=== PATIENT | female | born 2000 | race Caucasian/White ===

== ENCOUNTER 2022-07-11 15:25 | Emergency (ER) | payer BC, SELFPAY ==
--- NOTE | ~2022-07-11 | CT_ITS ---
EXAMINATION: CT ABDOMEN AND PELVIS WITH CONTRAST CLINICAL INFORMATION: Lower abdominal pain COMPARISON: Ultrasound earlier today - Probable right ovarian hemorrhagic cyst or corpus luteum. Left ovarian heterogeneous mass which appears partially cystic. This too may represent possible hemorrhagic cyst possibly of teratoma also in the differential. TECHNIQUE: Multidetector volumetric images were obtained from the superior aspect of the liver through the pubic symphysis following administration 85 mL of Omnipaque 350 intravenous contrast. Sagittal and coronal reformatted images were obtained on the technologist's workstation. Oral contrast: No This CT examination was performed using dose optimization techniques as appropriate, variously including the following: *Automated exposure control *Adjustment of mA and/or kV according to patient size (this includes techniques or standardized protocols for targeted exams where dose is matched to indication/reason for exam; i.e. extremities or head) *Use of iterative reconstruction technique DLP: 289 mGy-cm FINDINGS: LUNG BASES: A polygonal shaped 5 mm nodule is present abutting the pleura in the left lower lobe (4:7) The visualized lung bases are otherwise unremarkable. LIVER, GALLBLADDER, AND BILIARY TREE: The liver is normal in size, shape, and attenuation. No focal hepatic lesion. There is some minimal prominence of intrahepatic bile ducts but no significant biliary ductal dilatation is present. The gallbladder is unremarkable with no evidence of radiopaque gallstones, gallbladder wall thickening, or obvious pericholecystic inflammatory changes. PANCREAS: Unremarkable. SPLEEN: A 3 cm splenic cyst is present. A splenule is present in the left midabdomen just below the spleen ADRENAL GLANDS: Unremarkable. KIDNEYS AND URETERS: The kidneys are normal in size, shape, and attenuation. No hydronephrosis, hydroureter, or calculi seen. No perinephric stranding. BLADDER: Unremarkable. GASTROINTESTINAL TRACT: The small and large bowel are unremarkable. The appendix is not identified with certainty but there is no evidence to suggest appendicitis. ABDOMINAL WALL: No significant hernia is appreciated. Subcutaneous air is present in the right buttock, presumably from a subcutaneous injection. Please correlate with history. LYMPH NODES: Normal. VASCULAR: Unremarkable. PELVIC VISCERA: An IUD is present in the retroverted uterus. Small amount of free pelvic fluid is seen. There is an enhancing wall of what appears to be a collapsed left ovarian cyst. No calcifications are seen in the left ovary to suggest a dermoid/teratoma. A pathologic worrisome adnexal mass is not seen. OSSEOUS STRUCTURES: Unremarkable. CT/CT abdomen pelvis w IV con IMPRESSION: Probable ruptured cyst in left ovary with free intraperitoneal fluid. A worrisome finding is not seen. Incidental note made of 5 mm polygonal subpleural left lower lobe nodule I suspect possibly benign lymphoid tissue. Fleischner guidelines do not apply to patients 5 years of age. Fleischner guidelines were followed, and as recommended do not apply to patients of this age.
--- NOTE | ~2022-07-11 | US_ITS ---
EXAMINATION: US PELVIS TRANSVAGINAL CLINICAL INFORMATION: Severe sudden pelvic pain COMPARISON: None. TECHNIQUE: Transcutaneous and transvaginal pelvic ultrasound. Transvaginal scanning was performed after voiding to better evaluate the endometrium and adnexa. FINDINGS: The uterus measures 7.2 x 3.2 x 4.1 cm. The uterus is anteverted. No suspicious abnormalities region of the cervix. The uterine contour is smooth. The endometrium measures 0.[address] No focal abnormalities within the myometrium. The right ovary measures approximately 4.1 x 2.5 x 1.9 cm. The calculated right ovarian volume is approximately 10.2 mL. There is normal right adnexal blood flow present. There is a heterogeneous and partially cystic 2.1 x 1.4 x 1.7 cm ovarian lesion which may represent the remnants of a ruptured cyst versus a corpus luteum. The left ovary measures 4.4 x 2.5 x 2.5 cm. The calculated left ovarian volume is approximately 14.4 mL. There is normal arterial and venous adnexal blood flow. There is a complex left ovarian structure which appears to have a cystic component as well as hyperechoic regions. No echogenic calcific region is noted within this. There is a small amount of vascular flow present within it with some peripheral vascularity. There is a small amount of free pelvic fluid seen. US/US pelvic and transvaginal IMPRESSION: IUD appears in good position. Probable right ovarian hemorrhagic cyst or corpus luteum. Left ovarian heterogeneous mass which appears partially cystic. This too may represent possible hemorrhagic cyst possibly of teratoma also in the differential.
--- NOTE | ~2022-07-11 | US_ITS ---
EXAMINATION: US PELVIS TRANSVAGINAL CLINICAL INFORMATION: Severe sudden pelvic pain COMPARISON: None. TECHNIQUE: Transcutaneous and transvaginal pelvic ultrasound. Transvaginal scanning was performed after voiding to better evaluate the endometrium and adnexa. FINDINGS: The uterus measures 7.2 x 3.2 x 4.1 cm. The uterus is anteverted. No suspicious abnormalities region of the cervix. The uterine contour is smooth. The endometrium measures 0.[address] No focal abnormalities within the myometrium. The right ovary measures approximately 4.1 x 2.5 x 1.9 cm. The calculated right ovarian volume is approximately 10.2 mL. There is normal right adnexal blood flow present. There is a heterogeneous and partially cystic 2.1 x 1.4 x 1.7 cm ovarian lesion which may represent the remnants of a ruptured cyst versus a corpus luteum. The left ovary measures 4.4 x 2.5 x 2.5 cm. The calculated left ovarian volume is approximately 14.4 mL. There is normal arterial and venous adnexal blood flow. There is a complex left ovarian structure which appears to have a cystic component as well as hyperechoic regions. No echogenic calcific region is noted within this. There is a small amount of vascular flow present within it with some peripheral vascularity. There is a small amount of free pelvic fluid seen. US/US pelvic ovarian doppler IMPRESSION: IUD appears in good position. Probable right ovarian hemorrhagic cyst or corpus luteum. Left ovarian heterogeneous mass which appears partially cystic. This too may represent possible hemorrhagic cyst possibly of teratoma also in the differential.
[2022-07-11 16:32] VITALS: BP 101/72; PULSE 85; RESP 18; TEMP 36.9; O2SAT 97; BMI 19.2
[2022-07-11 16:48] LABS: MANUAL DIFF FLAG NO
[2022-07-11 16:50] LABS: Basophils Percent Auto 0.5 % (0-2); Eosinophils Percent Auto 0.5 % (0-4); Hematocrit 37.7 % (37.0-47.0); Imm Gran Abs Auto 0.01 X10*3/uL (0.00-0.03); Imm Gran Pct Auto 0.2 % (0.0-0.4); Lymphocytes Absolute Auto 2.1 X10*3/uL (1.2-4.9); Lymphocytes Percent Auto 34.8 % (20-40); Mean Corpuscular HGB Conc 34.5 g/dl (31.0-35.0); Mean Corpuscular Hemoglobin 30.7 pg (27.0-33.0); Mean Corpuscular Volume 89.1 fL (80.0-98.0); Mean Platelet Volume 10.7 fL (9.4-12.3); Monocytes Absolute Auto 0.4 X10*3/uL (0.1-1.2); Monocytes Percent Auto 7.4 % (2-11); Neutrophils Absolute Auto 3.4 x10*3/uL (2.0-8.3); Neutrophils Percent Auto 56.6 % (45-73); Platelet Count 227 X10*3/uL (160-400); Red Blood Count 4.23 X10*6/uL (4.20-5.50); Red Cell Distribution Width 12.5 % (11.0-16.0); White Blood Count 5.9 X10*3/uL (4.8-10.8)
--- NOTE | 2022-07-11 17:23 | ED_ITS ---
HPI - General Chief complaint: Vaginal Bleeding Stated complaint: severe pelvis pain Time Seen by Provider: 07/11/22 15:30 Source: patient Mode of arrival: ambulatory Limitations: no limitations History of Present Illness HPI Narrative: This is a 22-year-old female presenting to the emergency department with complaints of lower abdominal pain. The patient reports that she had the sudden onset of severe abdominal pain this morning at around 9:30 AM. She notes a severe, stabbing pain in her lower abdomen, right side of her back, and in her anus. She also reports that she had a random episode of vomiting yesterday afternoon and she questions if this was related. She tells me that she has been sexually active recently but denies any concerns for STD or , she has an IUD in place. She has dealt with ovarian cysts in the past and reports that this pain is similar. She was last seen by her OBGYN for this issue in March 2022, but reports that she has been unable to see them because she is currently at school at [employer] and they are located far away. She also reports having vaginal discharge that is brownish appearing and has been spotting today, she has not saturated any pads today. LMP 12/2021 however due to IUD patient with irregular cycles. She denies any chills, headaches, dizziness, upper abdominal pain, changes in bowel habits, dysuria, or hematuria. Related Data Previous Rx's Medication Instructions Recorded doxycycline hyclate 100 mg capsule 100 mg PO BID 14 days #28 caps 07/11/22 metronidazole 500 mg tablet 500 mg PO BID 14 days #28 tabs 07/11/22 morphine 15 mg immediate release 15 mg PO Q8H PRN pain #6 tabs 07/11/22 tablet ondansetron 4 mg disintegrating 4 mg PO Q6H PRN nausea and 07/11/22 tablet vomiting #14 tabs Allergies Allergy/AdvReac Type Severity Reaction Status Date / Time No Known Allergies Allergy Verified 07/11/22 16:30 Review of Systems Review of Systems: Constitutional : + Fever, No Chills ENT/Mouth : No sore throat, No Rhinorrhea Eyes: No Eye Pain, No Redness Cardiovascular : No Chest Pain, No SOB Respiratory : No Cough, No Sputum, No Wheezing Gastrointestinal : positive Nausea, + Vomiting, No Diarrhea, positive abdominal pain, Genitourinary : positive irregular bleeding, No Dysuria, No Urinary Frequency, positive pelvic pain, + vaginal discharge Musculoskeletal : No Myalgias Skin : No rash All other systems reviewed and are negative Yes all other systems are reviewed and are negative [facility] Past Medical History Attestation statement: The following information was validated with the patient. Source: old records reviewed and nursing notes reviewed Social History Social History Alcohol intake: never Patient Tobacco Use Status: Current everyday Tobacco user Use of substances other than those prescribed or required for medical reasons: No Advance Directives: No Advance Directives Information Provided: No Patient : No Physical Exam Vital Signs: Vital Signs: Last Vital Signs Temp 98.6 F 07/11/22 17:30 Pulse 80 07/11/22 17:30 Resp 16 07/11/22 17:30 BP 118/76 07/11/22 17:30 Pulse Ox 99 07/11/22 17:30 O2 Del Method 07/11/22 17:30 BMI result Body Mass Index 19.2 vss Appearance: Alert.? Oriented X3.? No acute distress.? Head: Normocephalic, atraumatic, no step-offs or deformities Eyes: Pupils equal, round and reactive to light.?? Neck: Normal inspection.? Neck supple.? CVS: Normal heart rate and rhythm.? Pulses normal.? Respiratory: No respiratory distress.? Breath sounds normal.? Abdomen: Soft. Non-distended. Positive bowel sounds. Lower abdominal tenderness to palpation. No upper abdominal tenderness. Negative Winston's sign, Mcburney's point tenderness, Rosving sign, or rebound tenderness. Skin: Skin warm and dry.? Normal skin color.? Normal skin turgor.? Extremities: No lower extremity edema.? No calf ttp. 5/5 strength to bilateral upper and lower extremities. Sensitive exam: normal external exam, vaginal canal w/ d/c that is a martita color with a hint of green appears chunky, cervix normal appearing w/ closed os. No lessions or rashes noted. Unable to palpate any masses. B/l adnexal tenderness w/ L>R. Back: Mild right paraspinal tenderness to palpation. No CVA tenderness. No midline tenderness throughout. Neuro: Oriented X 3.? No motor deficit.? No sensory deficit. Course Reevaluation(s) Reevaluation #1: CBC within normal limits. ultrasound of pelvis and transvaginal with Doppler showing a normal appearance for IUD, probable right ovarian hemorrhagic cyst or corpus luteal cyst. Left ovarian heterogeneous mass which appears partially cystic which could represent hemorrhagic cyst versus teratoma. Patient's pain is likely secondary to ruptured ovarian cyst based off history, physical, ultrasound. There is no signs of torsion on exam. Time: 17:27 Reevaluation #2: Spoke to Dr. Petersen who tells me this could be a complex cyst and high suspicion for PID recommends tx with doxy and metronidazole 14 days. Due to complexity of cyst recommends [facility] OBGYN f/u, will provider her with information. Patient was given ceftriaxone at her school's clinic, will try to figure out what dose she was given to ensure she does not need an additional dose. Will also give patient doxycycline and metronidazole at this time. Based patient's history and physical examination will also obtain a CT of the abdomen and pelvis to rule out any other etiologies that could be causing this pain. Time: 18:22 Reevaluation #3: CT scan results similar to ultrasound results, incidental lung nodule noted. Patient advised to return with new or worsening symptoms. Unable to get a hold of [facility] to discuss dose of ceftriaxone given, tried multiple times no answer patient doestn know the dose. Discussed this with Dr. Petersen who tells me that its ok to give another 250 mg incase patient didnt get the full dose of 500 mg discussed this with patient she is agreeable. Patient now with [place] teenafran will be given. Still complaining of pain Time: 19:56 Additional Reevaluation(s): Upon reevaluation patient feeling better. Tollerating PO. Pain improved from when she got here looks more comfortable. Patient will be dc home with prompt obgyn follow up and follow up with pcp. MDM - OB/Uterine Contractions MDM Narrative Medical decision making narrative: 1719 22 year old female presenting with lower abdominal pain, 1 episode of nausea and vomiting, vaginal spotting, and vaginal discharge. Hx of ovarian cysts. IUD in place currently, LMP 12/2021 PE remarkable for lower abdominal tenderness bilaterally, right paraspinal tenderness to palpation. history and physical examination concerning for possible ovarian cyst, torsion, PID. Plan to obtain basic labs, HCG, pelvic ultrasound, Medical Records Attestation: I reviewed the patient's medical records. Lab Data Attestation: I reviewed the patient's lab results. Result diagrams: 07/11/22 16:43 07/11/22 17:39 Labs: Lab Results 07/11/22 07/11/22 07/11/22 Range/Units 16:43 17:39 18:37 WBC 5.9 (4.8-10.8) X10*3/uL RBC 4.23 (4.20-5.50) X10*6/uL Hgb 13.0 (12.0-16.0) g/dl Hct 37.7 (37.0-47.0) % MCV 89.1 (80.0-98.0) fL MCH 30.7 (27.0-33.0) pg MCHC 34.5 (31.0-35.0) g/dl RDW 12.5 (11.0-16.0) % Plt Count 227 (160-400) X10*3/uL MPV 10.7 (9.4-12.3) fL Immature Gran % (Auto) 0.2 (0.0-0.4) % Neut % (Auto) 56.6 (45-73) % Lymph % (Auto) 34.8 (20-40) % [place] % (Auto) 7.4 (2-11) % Eos % (Auto) 0.5 (0-4) % Baso % (Auto) 0.5 (0-2) % Lymph # (Auto) 2.1 (1.2-4.9) X10*3/uL [place] # (Auto) 0.4 (0.1-1.2) X10*3/uL Eos # (Auto) 0.0 (0.0-0.4) X10*3/uL Baso # (Auto) 0.0 (0.0-0.2) X10*3/uL Abs Immat Gran (auto) 0.01 (0.00-0.03) X10*3/uL Absolute Neuts (auto) 3.4 (2.0-8.3) x10*3/uL Absolute Nucleated RBC 0.000 (0.0-0.012) X10*3/uL Nucleated RBC % (auto) 0.0 (0.0-0.2) /100WBC Sodium 139 (135-145) mmol/L Potassium 3.7 (3.3-5.1) mmol/L Chloride 105 (96-108) mmol/L Carbon Dioxide 23 (22-29) mmol/L Anion Gap 15 (12-20) BUN 10 (9-16) mg/dL Creatinine 0.68 (0.5-1.4) mg/dL Estim Creat Clear Calc 98.3 Estimated GFR > 60 Random Glucose 88 (60-115) mg/dL Calcium 9.5 (8.4-10.2) mg/dL Total Bilirubin 1.0 (0.0-1.0) mg/dL AST 15 (5-31) U/L ALT 10 (0-31) U/L Alkaline Phosphatase 45 (39-117) U/L Total Protein 7.2 (6.5-8.0) g/dL Albumin 4.4 (3.5-5.0) g/dL Beta HCG, Quant < 2 mIU/mL Urine Color Yellow Urine Appearance Clear Urine pH 6.0 (5.0-9.0) Ur Specific [place] >= 1.030 H (1.005-1.025) Urine Protein Negative (Neg-Trace) mg/dL Urine Glucose (UA) Negative (Negative) mg/dL Urine Ketones 15 (Negative) mg/dL Urine Blood Negative (Negative) Urine Nitrite Negative (Negative) Ur Leukocyte Esterase Negative (Negative) Critical Care Time Critical Care Time Critical Care Time: Yes Total Critical Care Time: 35 Attestation: I attest to this time spent taking care of the patient, obtaining history, physical, reviewing labs, imaging, speaking to my attending, speaking to specialist. Discharge Plan Discharge Clinical Impression: Vaginal bleeding, Pelvic pain, Ovarian cyst, Acute pelvic inflammatory disease (PID) Patient Disposition: Home, Self-Care Instructions: Ovarian Cyst (ED), Pelvic Pain (ED), Ovarian Cyst Removal (DC) Additional Instructions: Take your medications as prescribed. If you were prescribed antibiotics today, it is important that you take your medication to their entirety, do not skip any doses, do not finish them early. Follow-up with your primary care provider this week. Please follow-up with your OBGYN, if he do not have one I have attached one that works here at [facility] and one at [facility] as you have a complex cyst and will likely benefit from seeing a provider out of [facility]. Return to the emergency department with new or worsening symptoms. Such as fevers, chills, chest pain, shortness of breath, nausea, vomiting, dizziness, headache, vision changes, lethargy, bleeding through more than 2 pads per hour, worsening pain Apply heating pack to affected area. In case of emergency call 911 For severe pain you can take morphine as prescribed however, if you do take morphine please do not operate machinery or drive while taking it. Please only take this medication your self do not share with anyone. For [id number] pain you can take ibuprofen every 6 hours, Tylenol every 4 as needed for pain or discomfort. CT/CT abdomen pelvis w IV con IMPRESSION: Probable ruptured cyst in left ovary with free intraperitoneal fluid. A worrisome finding is not seen. ? Incidental note made of 5 mm polygonal subpleural left lower lobe nodule I suspect possibly benign lymphoid tissue. Fleischner guidelines do not apply to patients 5 years of age. ? Fleischner guidelines were followed, and as recommended do not apply to patients of this age. US/US pelvic ovarian doppler IMPRESSION: IUD appears in good position. ? Probable right ovarian hemorrhagic cyst or corpus luteum. ? Left ovarian heterogeneous mass which appears partially cystic. This too may represent possible hemorrhagic cyst possibly of teratoma also in the differential. ? Prescriptions: New doxycycline hyclate 100 mg capsule 100 mg PO BID 14 Days Qty: 28 0RF metronidazole 500 mg tablet 500 mg PO BID 14 Days Qty: 28 0RF morphine 15 mg tablet 15 mg PO Q8H PRN (Reason: pain) Qty: 6 0RF Rx Instructions: Partial Fill upon patient request. ondansetron 4 mg tablet,disintegrating 4 mg PO Q6H PRN (Reason: nausea and vomiting) Qty: 14 0RF Referrals: Physician,Rick Rodriguez [Physician] - 2 days Salty Petersen MD [Physician] - 2 days [facility] [Provider Group] - 1 day Stand Alone Forms: Work/School Release
[2022-07-11 17:30] VITALS: BP 118/76; PULSE 80; RESP 16; TEMP 37; O2SAT 99
[2022-07-11] MEDS: Morphine Sulfate 2 MG/ML CARTRIDGE IVPUSH ×2 (17:46→20:09)
[2022-07-11 18:00] LABS: Alanine Aminotransferase 10 U/L (0-31); Albumin Level 4.4 g/dL (3.5-5.0); Alkaline Phosphatase 45 U/L (39-117); Anion Gap 15 (12-20); Aspartate Amino Transferase 15 U/L (5-31); Blood Urea Nitrogen 10 mg/dL (9-16); Calcium 9.5 mg/dL (8.4-10.2); Carbon Dioxide 23 mmol/L (22-29); Chloride 105 mmol/L (96-108); Creatinine Clr Calc Pharmacy 98.3; Estimated Glomerular Filt Rate > 60; Glucose Random 88 mg/dL (60-115); Potassium 3.7 mmol/L (3.3-5.1); Sodium 139 mmol/L (135-145); Total Protein 7.2 g/dL (6.5-8.0)
[2022-07-11 18:05] LABS: HCG Quantitative < 2 mIU/mL
--- NOTE | 2022-07-11 18:24 | P.CONOB_ITS ---
EMERGENCY ROOM CLINICIAN - CN: HPI Data of Consult Consult date: 07/11/22 Primary Care Provider: Unknown Physician Consult Narrative Narrative: I was consulted on Adrienne Davis who is a 22 year old female who presented to the emergency room with complaining of lower abdominal pain , it was sudden in onset at around 9:30 AM. She reports a severe, stabbing pain in her lower abdomen, right side of her back, and in her anus associated with 1 episode of vomiting. she has an IUD in place. The patient is a [employer] to tent [facility] and was given ceftriaxone IM and was discharged home to come the emergency room in case of worsening/persistence of her pain. In the emergency room CBC, chemistry within normal. HCG less than 2. GC/chlamydia, BV panel and Trichomonas collected. Pelvic ultrasound done cc:: CC: OB [facility] Social History Social History Alcohol intake: never Patient Tobacco Use Status: Current everyday Tobacco user Use of substances other than those prescribed or required for medical reasons: No Advance Directives: No Advance Directives Information Provided: No Patient : No Meds Allergies Allergy/AdvReac Type Severity Reaction Status Date / Time No Known Allergies Allergy Verified 07/11/22 16:30 EMERGENCY ROOM CLINICIAN Physical Exam Vitals Vital signs: Temp Pulse Resp BP Pulse Ox O2 Del Method 98.6 F 80 16 118/76 99 07/11/22 17:30 07/11/22 17:30 07/11/22 17:30 07/11/22 17:30 07/11/22 17:30 07/11/22 17:30 BMI result Body Mass Index 19.2 Additional Comments: Physical exam reported by DAMIAN Hart Abdomen: Soft. Non-distended. Positive bowel sounds. Lower abdominal tenderness to palpation. No upper abdominal tenderness no rebound tenderness. Pelvic exam: Bilateral adnexal tenderness left more than the right, greenish vaginal discharge no lesions no other findings EMERGENCY ROOM CLINICIAN - Results Labs CBC & Chem 7: 07/11/22 16:43 07/11/22 17:39 Labs: Short CBC 07/11/22 Range/Units 16:43 WBC 5.9 (4.8-10.8) X10*3/uL Hgb 13.0 (12.0-16.0) g/dl Hct 37.7 (37.0-47.0) % Plt Count 227 (160-400) X10*3/uL BMP 07/11/22 17:39 Sodium 139 Potassium 3.7 Chloride 105 Carbon Dioxide 23 BUN 10 Creatinine 0.68 Calcium 9.5 Liver Function 07/11/22 Range/Units 17:39 Total Bilirubin 1.0 (0.0-1.0) mg/dL AST 15 (5-31) U/L ALT 10 (0-31) U/L Alkaline Phosphatase 45 (39-117) U/L Albumin 4.4 (3.5-5.0) g/dL Imaging US - abdomen: Radiologist's impression: ITS Impressions Doppler Study Ultrasound 07/11/22 16:05 IMPRESSION: IUD appears in good position. Probable right ovarian hemorrhagic cyst or corpus luteum. Left ovarian heterogeneous mass which appears partially cystic. This too may represent possible hemorrhagic cyst possibly of teratoma also in the differential. Pelvic/Transvag US 07/11/22 16:05 IMPRESSION: IUD appears in good position. Probable right ovarian hemorrhagic cyst or corpus luteum. Left ovarian heterogeneous mass which appears partially cystic. This too may represent possible hemorrhagic cyst possibly of teratoma also in the differential. Assessment and Plan (1) Pelvic pain: Status: Inactive Discussed with DAMIAN Velasco differential diagnosis of pelvic pain including but not limited to ovarian cyst, PID and others, Recommended the following: Treat for PID with CDC protocol outpatient treatment with doxycycline 100 mg p.o. b.i.d. and Flagyl 500 mg p.o. b.i.d. for 14 days in addition to ceftriaxone of 500 mg IM x1 , and to verify the adequate dose was given at [facility], close of outpatient follow-up with STD screen including hep B surface antigen, hepatitis-C antibody, HIV and syphilis screen. Instructions to be given to the patient to come back to the emergency room in case of fever at 100.4 or above, nausea and vomiting, worsening or persistence of the pain. (2) Complex cyst of both ovaries: Status: Acute Since bilateral Doppler studies are normal by ultrasound, recommend close outpatient follow-up for the complex ovarian cyst/hemorrhagic cysts /cystic mass. Differential diagnosis includes but not limited to pre malignant or malignant lesions. I spent a total of 20 minutes reviewing the chart, communicating to the ER provider and documenting in the medical record
[2022-07-11] MEDS: metroNIDAZOLE 500 MG TABLET PO (18:35)
[2022-07-11 18:51] LABS: Appearance Urine Clear; Color Urine Yellow; Glucose Urine UA Negative (Negative); Leukocyte Esterase Urine Negative (Negative); Nitrite Urine Negative (Negative); Specific Gravity - Urine >= 1.030 (1.005-1.025); Urine Blood Negative (Negative); Urine Ketones 15 mg/dL (Negative); Urine Protein Negative (Neg-Trace)
[2022-07-11] MEDS: iohexoL 350 MG/ML 100 ML INFUS..BTL IV (19:18)
[2022-07-11] MEDS: ondansetron HCL 4 MG/2 ML VIAL IVPUSH (20:09)
[2022-07-11] MEDS: cefTRIAXone sodium 250 MG, Lidocaine HCl 1 % MPF 0.9 ML IM (20:10)
[2022-07-11 22:00] VITALS: BP 109/65; BP 111/65; PULSE 69; PULSE 75; RESP 16; RESP 18; TEMP 36.6; TEMP 36.9; O2SAT 98
[2022-07-11] MEDS: HYDROmorphone HCl 0.5 MG/0.5 ML SYRINGE IVPUSH (22:07)
[2022-07-11] MEDS: 0.9 % Sodium Chloride 1,000 ML 999 ML IV (22:09)
[2022-07-12 01:29] VITALS: BP 114/62; PULSE 73; RESP 14; TEMP 36.8; O2SAT 97
[2022-07-12 02:29] LABS: CT PCR NOT DETECTED (Not Detect.); NG PCR NOT DETECTED (Not Detect.)
== END 2022-07-12 01:30 | disposition home or self-care (01) ==
PROVIDERS: Physician Assistant; Emergency Provider Emergency Medicine
DX: N83.292 Other ovarian cyst, left side (principal); N83.291 Other ovarian cyst, right side; N93.9 Abnormal uterine and vaginal bleeding, unspecified; N73.9 Female pelvic inflammatory disease, unspecified; R10.2 Pelvic and perineal pain; F17.200 Nicotine dependence, unspecified, uncomplicated
CPT/HCPCS: 36415; 74177; 76830; 76856; 80053; 81003; 84702; 85025; 87480; 87491; 87510; 87591; 87660; 93975; 96372; 96374; 96375; 96376; 99284; J0696; J1170; J2270; J2405; Q9967